=== PATIENT | male | born 1965 | race Hispanic/Latino ===

== ENCOUNTER 2024-05-29 08:27 | Emergency (ER) | payer OTHER ==
--- NOTE | 2024-05-29 09:13 | EDPHYS ---
Physician Documentation [facility] Name: Jarrett Eden Age: 58 yrs Sex: Male : 1965 Arrival Date: 05/29/2024 Time: 08:27 Bed 13 Private MD: ED Physician Alisia Pathak HPI: 05/29 08:53 This 58 yrs old Male presents to ER via Unassigned with complaints of Left sp3 Finger Injury. 08:53 58-year-old male with history of hypertension, peptic ulcer disease presents with chief sp3 complaint left fourth ring finger distal phalanx injury that occurred greater than 12 hours ago when his hand slammed into his longterm cell door. He denies any secondary injury. Remainder of ROS negative.. Historical: - Allergies: 08:35 No Known Allergies; rs5 - PMHx: 08:35 Hypertensive disorder; Ulcer; rs5 - PSHx: 08:35 ulcer surgery; rs5 - Immunization history:: Adult Immunizations up to date. - Infectious Disease History:: Denies. - Social history:: Smoking status: Patient denies any tobacco usage or history of. ROS: 08:57 Constitutional: Negative for fever, chills, and weight loss, Eyes: Negative for injury, sp3 pain, redness, and discharge, Neck: Negative for injury, pain, and swelling, Cardiovascular: Negative for chest pain, palpitations, and edema, Respiratory: Negative for shortness of breath, cough, wheezing, and pleuritic chest pain, Abdomen/GI: Negative for abdominal pain, nausea, vomiting, diarrhea, and constipation, Back: Negative for injury and pain, Neuro: Negative for headache, weakness, numbness, tingling, and seizure, Psych: Negative for depression, anxiety, suicide ideation, homicidal ideation, and hallucinations, Allergy/Immunology: Negative for hives, rash, and allergies, Endocrine: Negative for neck swelling, polydipsia, polyuria, polyphagia, and marked weight changes, 08:57 All other systems are negative, Exam: 08:57 Constitutional: This is a well developed, well nourished patient who is awake, alert, sp3 and in no acute distress. Head/Face: Normocephalic, atraumatic. Eyes: Pupils equal round and reactive to light, extra-ocular motions intact. Lids and lashes normal. Conjunctiva and sclera are non-icteric and not injected. Cornea within normal limits. Periorbital areas with no swelling, redness, or edema. Neck: Trachea midline, no thyromegaly or masses palpated, and no cervical lymphadenopathy. Supple, full range of motion without nuchal rigidity, or vertebral point tenderness. No Meningismus. Chest/axilla: Normal chest wall appearance and motion. Nontender with no deformity. No lesions are appreciated. Cardiovascular: Regular rate and rhythm with a normal S1 and S2. No gallops, murmurs, or rubs. Normal PMI, no JVD. No pulse deficits. Respiratory: Lungs have equal breath sounds bilaterally, clear to auscultation and percussion. No rales, rhonchi or wheezes noted. No increased work of breathing, no retractions or nasal flaring. Abdomen/GI: Soft, non-tender, with normal bowel sounds. No distension or tympany. No guarding or rebound. No evidence of tenderness throughout. Back: No spinal tenderness. No costovertebral tenderness. Full range of motion. Neuro: Awake and alert, GCS 15, oriented to person, place, time, and situation. Cranial nerves II-XII grossly intact. Motor strength 5/5 in all extremities. Sensory grossly intact. Cerebellar exam normal. Normal gait. Psych: Awake, alert, with orientation to person, place and time. Behavior, mood, and affect are within normal limits. 08:57 Musculoskeletal/extremity: Avulsion injury to the tip of the left distal fourth finger. Injury is been greater than 12 hours. No active bleeding and scab is already starting to form.. Vital Signs: 08:31 BP 147 / 99; Pulse 86; Resp 17; Temp 98(O); Pulse Ox 99% ; rs5 09:26 BP 137 / 92; Pulse 80; Resp 17; Pulse Ox 99% on R/A; rs5 MDM: 08:34 Medical Screening Exam initiated sp3 08:58 Data reviewed: radiologic studies. ED course: Tuft fracture noted distal left fourth sp3 finger. Avulsion injury in the same location. Injury has been greater than 12 hours so we will clean that area as best we can and avulsion could heal by secondary intention. Flap may or may not take and we will have to follow. Antibiotics p.o. and follow-up with care home physician.. 09:11 ED course: If patient would have arrived sooner potential repair could have occurred sp3 however given the current state it cannot be done.. 05/29 08:35 Order name: Hand Left 2 View XRAY; Complete Time: 09:30 sp3 05/29 09:00 Order name: Wound Care: cleanse wound and dress; Complete Time: 16:54 sp3 Administered Medications: 09:21 Drug: Amoxicillin-Clavulanate PO 875 mg PO once Route: PO; rs5 Disposition Summary: 05/29/24 09:12 Discharge Ordered Notes: Location: Home sp3 Condition: Stable sp3 Diagnosis - Left fourth finger distal tuft fracture, open, avulsion injury sp3 Followup: sp3 - With: Private Physician - When: Upon discharge from the Emergency Department - Reason: Continuance of care Discharge Instructions: - Discharge Summary Sheet sp3 - Finger Fracture, Adult sp3 Forms: - Medication Reconciliation Form sp3 - Antibiotic Education sp3 - Prescription Opioid Use sp3 - Patient Portal Instructions sp3 - Leadership Thank You Letter sp3 Prescriptions: - Augmentin 875-125 mg Oral Tablet - take 1 tablet ORAL route every 12 hours for 10 days; 20 tablet; Refills: 0, sp3 Product Selection Permitted Signatures: Dispatcher [employer] EDMS Alisia Pathak MD MD sp3 Milton Chaney RN RN rs5
--- NOTE | 2024-05-29 09:13 | ER ---
Nurse's Notes [facility] Name: Jarrett Eden Age: 58 yrs Sex: Male : 1965 Arrival Date: 05/29/2024 Time: 08:27 Bed 13 Private MD: Diagnosis: Left fourth finger distal tuft fracture, open, avulsion injury Presentation: 05/29 08:31 Chief complaint: Patient states: "I accidentally smashed my left ring finger against rs5 the cell door last night and it's still hurting". Coronavirus screen: At this time, the client does not indicate any symptoms associated with coronavirus-19. Ebola Screen: No symptoms or risks identified at this time. Initial Sepsis Screen: Does the patient meet any 2 criteria? No. Patient's initial sepsis screen is negative. Does the patient have a suspected source of infection? No. Patient's initial sepsis screen is negative. Risk Assessment: Do you want to hurt yourself or someone else? Patient reports no desire to harm self or others. Onset of symptoms was May 29, 2024. 08:31 Acuity: ERMELINDA 3 rs5 08:31 Method Of Arrival: Law Enforcement: [place] [employer] rs5 Historical: - Allergies: 08:35 No Known Allergies; rs5 - PMHx: 08:35 Hypertensive disorder; Ulcer; rs5 - PSHx: 08:35 ulcer surgery; rs5 - Immunization history:: Adult Immunizations up to date. - Infectious Disease History:: Denies. - Social history:: Smoking status: Patient denies any tobacco usage or history of. Screenin:33 [facility] ED Fall Risk Assessment (Adult) History of falling in the last 3 months, rs5 including since admission No falls in past 3 months (0 pts) Confusion or Disorientation No (0 pts) Intoxicated or Sedated No (0 pts) Impaired Gait No (0 pts) Mobility Assist Device Used No (0 pt) Altered Elimination No (0 pt) Score/Fall Risk Level 0 - 2 = Low Risk Oriented to surroundings, Maintained a safe environment. Abuse screen: Denies threats or abuse. Nutritional screening: No deficits noted. Tuberculosis screening: No symptoms or risk factors identified. Assessment: 08:35 General: Appears in no apparent distress. uncomfortable, Behavior is calm, cooperative. rs5 Pain: Complains of pain in left ring finger Pain currently is 3 out of 10 on a pain scale. Quality of pain is described as aching, Is continuous. Neuro: Level of Consciousness is awake, alert, obeys commands, Oriented to person, place, time, situation. Cardiovascular: Patient's skin is warm and dry. Respiratory: Airway is patent Respiratory effort is even, unlabored, Respiratory pattern is regular, symmetrical. GI: Abdomen is round non-distended, Abd is soft and non tender X 4 quads. : No signs and/or symptoms were reported regarding the genitourinary system. EENT: No signs and/or symptoms were reported regarding the EENT system. Derm: Skin is intact, Skin is pink, warm \\T\\ dry. small lac noted to tip of left ring finger, no active bleeding noted. Musculoskeletal: Range of motion: intact in all extremities. 09:26 Reassessment: Patient and/or family updated on plan of care and expected duration. Pain rs5 level reassessed. Patient is alert, oriented x 3, equal unlabored respirations, skin warm/dry/pink. Vital Signs: 08:31 BP 147 / 99; Pulse 86; Resp 17; Temp 98(O); Pulse Ox 99% ; rs5 09:26 BP 137 / 92; Pulse 80; Resp 17; Pulse Ox 99% on R/A; rs5 ED Course: 08:31 Patient arrived in ED. rs5 08:33 Patient has correct armband on for positive identification. Placed in gown. Bed in low rs5 position. Call light in reach. Side rails up X2. 08:33 No provider procedures requiring assistance completed. rs5 08:34 Alisia Pathak MD is Attending Physician. sp3 08:35 Triage completed. rs5 08:37 Milton Chaney, ADDY is Primary Nurse. rs5 09:10 Provided Education on: discharge instructions . rs5 09:18 Hand Left 2 View XRAY In Process Unspecified. EDMS 09:31 Wound care: to located on palmar aspect of distal phalanx of left ring finger and left mb4 ring fingernail was cleaned with Hibiclens, Patient tolerated well. 09:35 Aluminum finger splint applied to left fourth finger. mb4 09:36 Patient did not have IV access during this emergency room visit. rs5 Administered Medications: 09:21 Drug: Amoxicillin-Clavulanate PO 875 mg PO once Route: PO; rs5 Medication: 09:24 VIS not applicable for this client. rs5 Outcome: 09:12 Discharge ordered by . glendy 09:36 Discharged to Law Enforcement rs5 09:36 Condition: stable rs5 09:36 Condition: improved 09:36 Discharge instructions given to patient, police, Instructed on discharge instructions, follow up and referral plans. Demonstrated understanding of instructions, follow-up care, 09:39 Patient left the ED. rs5 Signatures: Dispatcher [employer] EDMS Donna Coulter mb4 Alisia Pathak MD MD sp3 Milton Chaney, RN RN rs5
[2024-05-29] MEDS ORDERED: AMOX/K CLAV 875 MG TAB ONE (09:19)
--- NOTE | 2024-05-29 09:29 | RAD REPORT ---
EXAM: Hand Left 2 View HISTORY: left ring finger tip injury COMPARISON: None FINDINGS: Bones: Slightly displaced fracture at the tip of the fourth finger involving the phalangeal tuft. Sma ll radiopaque foreign body in the thumb in the region of the proximal phalanx. Alignment:No significant malalignment. Degenerative changes:Degenerative changes are present at the first MCP joint. Other: n/a IMPRESSION: Fourth distal phalangeal tuft fracture which is slightly displaced.
[2024-05-29 13:07] VITALS: TEMP 98; O2SAT 99
[2024-05-29 13:08] VITALS: BP 137/92
== END 2024-05-29 09:39 | disposition home or self-care (01) ==
LOC: ER 08:27
DX: S62.635B Displaced fracture of distal phalanx of left ring finger, initial encounter for open fracture (principal); W23.0XXA Caught, crushed, jammed, or pinched between moving objects, initial encounter
CPT/HCPCS: 99284